=== PATIENT | male | born 1980 | race Two or more races ===

== ENCOUNTER 2021-04-13 18:49 | Emergency (ER) | payer BC ==
[~2021-04-13] VITALS: Ht 182.9 cm; Wt 81.6 kg
[2021-04-13] MEDS ORDERED: PERCOCET 5-3251 EACH PO (23:35)
== END 2021-04-13 23:30 | disposition home or self-care (01) ==
LOC: ER 18:49
DX: S92.062A Displaced intraarticular fracture of left calcaneus, initial encounter for closed fracture (principal); W22.09XA Striking against other stationary object, initial encounter; Y93.01 Activity, walking, marching and hiking; Y92.821 Forest as the place of occurrence of the external cause; Y99.8 Other external cause status